=== PATIENT | male | born 1995 | race Two or more races ===

== ENCOUNTER 2020-09-10 07:04 | Day surgery (SDC) | payer OTHER | END 2020-09-10 10:00 | disposition home or self-care (01) | LOC: AMB-ENDOS 07:04 | PROVIDERS: ATTEND Internal Medicine Gastroenterology | DX: D13.1 Benign neoplasm of stomach (principal); D13.2 Benign neoplasm of duodenum; K44.9 Diaphragmatic hernia without obstruction or gangrene; Z20.822 Contact with and (suspected) exposure to COVID-19 ==